=== PATIENT | male | born 2000 | race Caucasian/White ===

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

== ENCOUNTER 2018-05-30 20:55 | Emergency (ER) | payer BC, MEDICAID ==
[2018-05-30 21:03] VITALS: BP 143/76
--- NOTE | 2018-05-30 21:09 | ED Physician Documentation ---
PD HPI LOWER EXT INJURY - Stated complaint Stated Complaint: L KNEE INJ - Chief complaint Chief Complaint: Laceration - History obtained from History obtained from: Patient, Family - History of Present Illness PD HPI LOW EXT INJURY LOCATION: Left (17-year-old gentleman was chopping wood at home this afternoon and accidentally hit the anterior left knee with a hatchet. He is up-to-date on tetanus.) Review of Systems Constitutional: reports: Reviewed and negative Cardiac: reports: Reviewed and negative Respiratory: reports: Reviewed and negative PD PAST MEDICAL HISTORY - Past Medical History Past Medical History: Yes Cardiovascular: None Respiratory: None Neuro: None Endocrine/Autoimmune: None GI: None : None HEENT: None Psych: None Musculoskeletal: Other Derm: None Other Past Medical History: TORN MCL L KNEE... - Past Surgical History Past Surgical History: No - Allergies Allergies/Adverse Reactions: Allergies Allergy/AdvReac Type Severity Reaction Status Date / Time azithromycin [From Zithromax] Allergy Rash Verified 05/30/18 21:03 - Social History Does the pt smoke?: No Smoking Status: Never smoker Does the pt drink ETOH?: No Does the pt have substance abuse?: No - Immunizations Immunizations are current?: Yes - POLST Patient has POLST: No PD ED PE NORMAL - Vitals Vital signs reviewed: Yes - General General: Alert and oriented X 3, No acute distress - Extremities Extremities: Other (Over the left patella there is a 1 cm vertical laceration with some mild bleeding,) - Neuro Neuro: Alert and oriented X 3, Normal speech Results - Vitals Vitals: Vital Signs - 24 hr 05/30/18 21:01 Temperature 36.7 C Heart Rate 104 H Respiratory 17 Rate Blood Pressure 143/76 H O2 Saturation 100 Oxygen O2 Source Room air Procedures - Laceration (location) L knee Length in cm: 1 Wound type: Linear Neurovascular status: Sensory intact, Motor intact, Vascular intact Tendon involvement: Tendon intact Anesthesia: Lidocaine 1%, With bicarb Wound Preparation: Betadine, Irrigated copiously NS Skin layer closure: Nylon, Interrupted (3 sutures), Size #-0 - enter number (4- 0) Other: Tetanus UTD Complexity: Simple PD MEDICAL DECISION MAKING - Sepsis Event Vital Signs: Vital Signs - 24 hr 05/30/18 21:01 Temperature 36.7 C Heart Rate 104 H Respiratory 17 Rate Blood Pressure 143/76 H O2 Saturation 100 Oxygen O2 Source Room air Departure - Departure Disposition: 01 Home, Self Care Clinical Impression: Laceration Condition: Good Record reviewed to determine appropriate education?: Yes Instructions: ED Laceration All Comments: Come back for any signs of infection which would include: Redness, swelling, drainage, increased pain, or fevers. Follow-up with your physician in 14 days for suture removal. Your blood pressure was elevated today on check into the emergency department. This does not mean that you have hypertension, it is a common phenomenon to come to the emergency department and have elevated blood pressure. I recommend that you see your primary care physician within the week to have it rechecked when you are feeling better.
[2018-05-30] MEDS ORDERED: BUFFERED LIDOCAINE 10 ML SYRINGE ONE (21:10)
== END 2018-05-30 21:28 | disposition home or self-care (01) ==
LOC: ED 20:55
DX: S81.012A Laceration without foreign body, left knee, initial encounter (principal); W27.0XXA Contact with workbench tool, initial encounter; Y93.89 Activity, other specified
CPT/HCPCS: 12001; 99283

== ENCOUNTER 2022-10-22 20:15 | Emergency (ER) | payer BC ==
[2022-10-22 21:12] LABS: BASOPHILS % (AUTO) 0.2 %; EOSINOPHILS % (AUTO) 0.1 %; HGB - HEMOGLOBIN 13.4 g/dL (14.0-18.0); LYMPHOCYTES # (AUTO) 0.2 10^3/uL (1.5-3.5); LYMPHOCYTES % (AUTO) 1.5 %; MEAN CORPUSCULAR HEMOGLOBIN 27.5 pg (27.0-31.0); MEAN CORPUSCULAR HGB CONC 31.2 g/dL (32.0-36.0); MEAN CORPUSCULAR VOLUME 88.3 fL (80.0-94.0); MEAN PLATELET VOLUME 10.9 fL (7.4-11.4); MONOCYTES # (AUTO) 0.8 10^3/uL (0.0-1.0); MONOCYTES % (AUTO) 5.5 %; NEUTROPHILS # (AUTO) 14.1 10^3/uL (1.5-6.6); NEUTROPHILS % (AUTO) 92.4 %; PLT - PLATELET COUNT 177 10^3/uL (130-450); RED BLOOD COUNT 4.87 10^6/uL (4.70-6.10); RED CELL DISTRIBUTION WIDTH 12.7 % (12.0-15.0); WHITE BLOOD COUNT 15.3 x10^3/uL (4.8-10.8)
[2022-10-22 21:19] LABS: BILIRUBIN,URINE NEGATIVE (NEGATIVE); GLUCOSE, URINE (UA) NEGATIVE (NEGATIVE); KETONES,URINE (UA) NEGATIVE (NEGATIVE); LEUKOCYTE ESTERASE, URINE NEGATIVE (NEGATIVE); NITRITE,URINE NEGATIVE (NEGATIVE); OCCULT BLOOD,URINE NEGATIVE (NEGATIVE); PROTEIN,URINE 30 mg/dL (NEGATIVE); UROBILINOGEN,URINE 0.2 (NORMAL) E.U./dL (NORMAL)
[2022-10-22 21:20] LABS: CLARITY,URINE CLEAR (CLEAR)
[2022-10-22 21:27] LABS: ALBUMIN 4.9 g/dL (3.2-5.5); ALBUMIN/GLOBULIN RATIO 1.8 (1.0-2.2); BILIRUBIN,TOTAL 0.9 mg/dL (0.2-1.0); CALCIUM 9.4 mg/dL (8.5-10.3); CREATININE 0.8 mg/dL (0.6-1.2); POTASSIUM 3.8 mmol/L (3.5-5.0); TOTAL PROTEIN 7.7 g/dL (6.7-8.2)
[2022-10-22 21:29] LABS: BACTERIA,URINE None Seen /HPF (None Seen); MUCUS,URINE Few Strands; RBC,URINE 0-5 /HPF (0-5); SQUAMOUS EPITHELIAL CELL,UR NONE SEEN (<= Few); WBC,URINE 0-3 /HPF (0-3)
--- NOTE | 2022-10-22 23:09 | ED Physician Documentation ---
PD HPI NVD - Stated complaint Stated Complaint: V/D/N - Chief complaint Chief Complaint: Abd Pain - Additonal information Additional information: HPI from patient. Patient complains of abdominal pain, nausea, vomiting, and diarrhea. Patient says that at approximately 1 PM today, he had gradual onset of generalized abdominal pain which subsequently (within approximately 1 hour) became associate with nausea and vomiting followed by diarrhea. He denies any fever. He says the symptoms have improved while awaiting this evaluation without specific intervention. He denies history of similar symptoms. There are no exacerbating or ameliorating factors to the abdominal pain. Initially, his nausea and vomiting were worsened with any p.o. intake, but he has subsequently been able to tolerate p.o. intake without recurrence of the nausea or vomiting. Review of Systems Constitutional: denies: Fever, Chills, Sweats GI: reports: Abdominal Pain, Nausea, Vomiting, Diarrhea PD PAST MEDICAL HISTORY - Past Medical History Past Medical History: Yes Cardiovascular: None Respiratory: None Neuro: None Endocrine/Autoimmune: None GI: None : None HEENT: None Psych: None Musculoskeletal: Other Derm: None - Past Surgical History Past Surgical History: No - Present Medications Home Medications: Ambulatory Orders Medication Instructions Recorded Confirmed No Known Home Medications 10/22/22 10/22/22 - Allergies Allergies/Adverse Reactions: Allergies Allergy/AdvReac Type Severity Reaction Status Date / Time azithromycin [From Zithromax] Allergy Rash Verified 10/22/22 20:24 - Social History Does the pt smoke?: No Smoking Status: Never smoker Does the pt drink ETOH?: No Does the pt have substance abuse?: No - Immunizations Immunizations are current?: Yes - POLST Patient has POLST: No PD ED PE NORMAL - Vitals Vital signs reviewed: Yes - General General: Alert and oriented X 3, No acute distress, Well developed/nourished - HEENT HEENT: Moist mucous membranes - Cardiac Cardiac: RRR, No murmur - Respiratory Respiratory: No respiratory distress, Clear bilaterally - Abdomen Abdomen: Soft, Non distended, Other (mild/moderate TTP periumbilcus and across upper abdomen without rebound or guarding) - Back Back: No CVA TTP Results - Vitals Vitals: Oxygen O2 Source Room air - Labs Labs: Laboratory Tests 10/22/22 10/22/22 10/22/22 21:04 21:04 21:12 WBC 15.3 H RBC 4.87 Hgb 13.4 L Hct 43.0 MCV 88.3 MCH 27.5 MCHC 31.2 L RDW 12.7 Plt Count 177 MPV 10.9 Neut # (Auto) 14.1 H Lymph # (Auto) 0.2 L [place] # (Auto) 0.8 Eos # (Auto) 0.0 Baso # (Auto) 0.0 Absolute Nucleated RBC 0.00 Nucleated RBC % 0.0 Sodium 135 Potassium 3.8 Chloride 98 L Carbon Dioxide 29 Anion Gap 8.0 BUN 21 H Creatinine 0.8 Estimated GFR (MDRD) 119 Glucose 133 H Calcium 9.4 Total Bilirubin 0.9 AST 25 ALT 43 Alkaline Phosphatase 42 Total Protein 7.7 Albumin 4.9 Globulin 2.8 Albumin/Globulin Ratio 1.8 Lipase 31 Urine Color DARK YELLOW Urine Clarity CLEAR Urine pH 7.0 Ur Specific [place] 1.025 Urine Protein 30 H Urine Glucose (UA) NEGATIVE Urine Ketones NEGATIVE Urine Occult Blood NEGATIVE Urine Nitrite NEGATIVE Urine Bilirubin NEGATIVE Urine Urobilinogen 0.2 (NORMAL) Ur Leukocyte Esterase NEGATIVE Urine RBC 0-5 Urine WBC 0-3 Ur Squamous Epith Cells NONE SEEN Urine Bacteria None Seen Urine Mucus Few Strands Ur Microscopic Review INDICATED Urine Culture Comments NOT INDICATED - Rads (name of study) CT A/P with IV contrast Radiology: Prelim report reviewed, See rad report PD Medical Decision Making - ED course Complexity details: reviewed results, re-evaluated patient, considered differential, d/w patient ED course: Leukocytosis on CBC (WBC 15.2) and , although mild, there is consistently reproducible TTP on abdominal exam. There is concern in this situation for inflammatory abdominal process including appendicitis and thus CT A/P with IV contrast is performed. The CT is s/o mild colitis without other concerning findings. Results d/w patient. On reevaluation prior to d/c, he remains in NAD and reexam of abdomen reveals minimal residual abdominal tenderness. He is requesting anti-nausea medication and thus given zofran with prepack of same. Return precautions discussed. Advised to follow up with PMD; should symptoms persist or reoccur, he might benefit from further testing to differentiate possible causes of recurrent colitis such as IBD Departure - Departure Disposition: 01 Home, Self Care Clinical Impression: Colitis Condition: Good Instructions: ED Abdominal Pain Unkn Cause Male Comments: The CT scan of your abdomen and pelvis showed some inflammation and your colon; this is called colitis, although there are many different causes of colitis. The exact cause cannot be determined in the emergency department. Causes of colitis would include viruses, bacteria, inflammatory bowel disease (such as Crohn's disease or ulcerative colitis), as well as other, though less common, causes. At this time, further testing is not indicated from an emergency standpoint nor is any specific treatment (such as an antibiotic). The most likely outcome is that the symptoms resolve without specific intervention over the next 2 or 3 days. Certainly, if your symptoms worsen, or if you develop new/concerning signs/symptoms (such as fever, blood in the stool), you should return to the emergency department. Otherwise, I recommend you contact your primary care provider in the morning to arrange for the next available appointment for reevaluation. Discharge Date/Time: 10/23/22 02:57
[2022-10-22] MEDS ORDERED: iohexoL-300 100 ML VIAL ONE (23:32)
--- NOTE | 2022-10-23 00:31 | CT Report ---
PROCEDURE: ABDOMEN/PELVIS W INDICATIONS: RLQ pain, tenderness CONTRAST: Omni 300 100ml TECHNIQUE: After the administration of intravenous contrast, 5 mm thick sections acquired from the diaphragms to the symphysis. 5 mm thick coronal and sagittal reformats were acquired. For radiation dose reducti on, the following was used: automated exposure control, adjustment of mA and/or kV according to karol ent size. COMPARISON: None. FINDINGS: Image quality: Excellent. Lung bases: Unremarkable. Heart: Heart is normal in size. ABDOMEN: Liver: No mass lesion. Gallbladder: Within normal limits without calcified gallstones. Biliary ducts: No biliary ductal dilatation. Pancreas: Unremarkable. Spleen: Normal in size. Adrenal Glands: No adrenal nodules. Kidneys and Ureters: No hydronephrosis. There is a small oval hypodensity in the left kidney which i s too small to characterize but likely represents a cyst. Stomach and Bowel: Stomach and small bowel loops are normal in caliber and wall thickness. The appen spencer is normal in appearance. There is mild segmental wall thickening of the sarai ascending, transverse and descending colon compatible with a mild colitis. Peritoneum: No abnormal intraperitoneal fluid. No free air. Ventral Wall: No hernia. Abdominal Nodes: No retroperitoneal or mesenteric adenopathy by size criteria. Vessels: Aorta and inferior vena cava are normal in size. PELVIS: Pelvic Organs: Unremarkable. Bladder: Unremarkable. Pelvic Nodes: No enlarged lymph nodes. Miscellaneous: No inguinal hernias. Bones: Visualized osseous structures demonstrate no suspicious lesions. IMPRESSION: 1. Mild segmental wall thickening of the descending, transverse, and descending colon consistent with a mild colitis. 2. No evidence of appendicitis. Reviewed by: Vijay Jacob MD on 10/23/2022 12:30 AM [facility] Approved by: Vijay Jacob MD on 10/23/2022 12:30 AM PST Station ID: [id number]
[2022-10-23] MEDS ORDERED: ONDANSETRON 4 MG/2 ML VIAL IVP STA (01:41)
[2022-10-23] MEDS ORDERED: ONDANSETRON ODT 4 MG Prepack 2 TL PRN (02:43)
[2022-10-23 02:58] VITALS: BP 113/68
[2022-10-23] MEDS ORDERED: iohexoL-300 100 ML VIAL IVP ONE (03:19)
== END 2022-10-23 02:57 | disposition home or self-care (01) ==
LOC: ED 20:15
DX: K52.9 Noninfective gastroenteritis and colitis, unspecified (principal)
CPT/HCPCS: 36415; 74177; 80053; 81001; 83690; 85025; 96374; 99283; 99284; Q9967; 81003; 87086